=== PATIENT | female | born 1990 | race African-American/Black ===

== ENCOUNTER 2017-12-15 13:20 | Emergency (ER) | payer OTHER ==
[~2017-12-15] VITALS: Ht 167.6 cm; Wt 64.9 kg
[~2017-12-15 13:20] MED LIST: OFLO5DRO OS
[2017-12-15 13:43] VITALS: BP 116/67
--- NOTE | 2017-12-15 13:57 | PHYS DOC ---
Past Medical History Past Medical History: No Pertinent History Past Surgical History: No Surgical History Alcohol Use: Occasionally Drug Use: None Adult General Chief Complaint Chief Complaint: WOUND RECHECK/SUTURE REMOVAL HPI HPI Patient is a 27 year old female with no significant medical history who presents today for suture removal from the left upper extremity, patient states sutures have been in for 2 weeks. Review of Systems Review of Systems Constitutional: Denies fever or chills [] Musculoskeletal: Denies back pain or joint pain [] Integument: Visit for suture removal Neurologic: Denies headache, focal weakness or sensory changes [] All other systems were reviewed and found to be within normal limits, except as documented in this note. Allergies Allergies Allergies Coded Allergies Type Severity Reaction Last Updated Verified No Known Drug Allergies 05/01/15 No Physical Exam Physical Exam Constitutional: Well developed, well nourished, no acute distress, non-toxic appearance. [] Skin: Warm, dry, left inner biceps with a well approximated laceration site with 2 interrupted sutures. The area has scabbed over, no signs of infection. Back: No tenderness, no CVA tenderness. [] Extremities: No tenderness, no cyanosis, no clubbing, ROM intact, no edema. [] Neurologic: Alert and oriented X 3, normal motor function, normal sensory function, no focal deficits noted. [] Psychologic: Affect normal, judgement normal, mood normal. [] Current Patient Data Vital Signs Vital Signs Date Time Temp Pulse Resp B/P (MAP) Pulse Ox O2 Delivery O2 Flow Rate FiO2 12/15/17 13:43 98.0 78 16 116/67 (83) 98 Room Air 98.0 EKG EKG [] Radiology/Procedures Radiology/Procedures [] Course & Med Decision Making Course & Med Decision Making Pertinent Labs and Imaging studies reviewed. (See chart for details) This is a 27-year-old female patient presenting to the ED today for suture removal from the left upper extremity, 2 interrupted sutures were removed from patient's laceration site, laceration site is well approximated, no signs of infection, follow-up with PCP as needed. Dragon Disclaimer Dragon Disclaimer This electronic medical record was generated, in whole or in part, using a voice recognition dictation system. Departure Departure Impression: Primary Impression: Visit for suture removal Disposition: HOME, SELF-CARE Condition: STABLE Referrals: NO PCP (PCP) follow up with your doctor in 1 week as needed Patient Instructions: Suture Removal-Brief Additional Instructions: We removed stitches from your left upper extremity. Keep the area clean and dry. You can shower. Follow-up with your own doctor as needed. JOHNNA DONNELLY APRN Dec 15, 2017 13:57
== END 2017-12-15 14:11 | disposition home or self-care (01) ==
LOC: ER 13:20
DX: S46.222D Laceration of muscle, fascia and tendon of other parts of biceps, left arm, subsequent encounter (principal); X58.XXXD Exposure to other specified factors, subsequent encounter
CPT/HCPCS: 99281

== ENCOUNTER 2018-06-03 15:31 | Emergency (ER) | payer OTHER ==
[~2018-06-03] VITALS: Ht 167.6 cm; Wt 68.5 kg
[2018-06-03 15:46] VITALS: BP 112/71
[2018-06-03] MEDS ORDERED: CETIRIZINE HCL 10 MG TABLET. PO STA (16:02)
[2018-06-03] MEDS ORDERED: DIPHTH,PERTUSS(ACELL),TET TOX 0.5 ML DISP.SYRIN. VAX IM ONE (16:15)
[2018-06-03] MEDS ORDERED: predniSONE 10 MG TABLET PO ONE (16:15)
[2018-06-03] MEDS ORDERED: PRED50TA PO (16:27)
[2018-06-03] MEDS ORDERED: CETI10TA22 PO (16:27)
[2018-06-03] MEDS ORDERED: DOXY100T PO (16:27)
--- NOTE | 2018-06-03 16:31 | PHYS DOC ---
Past Medical History Past Medical History: No Pertinent History Past Surgical History: No Surgical History Alcohol Use: Occasionally Drug Use: None Adult General Chief Complaint Chief Complaint: INSECT BITE HPI HPI Patient is a 28 year old female who presents to the ED today complaining of insect bite to the right forearm. Patient states she noted the bite area yesterday. She states she has been using [id number] remedies including mariaelena oil with no relief. Denies any fever. Denies any nausea vomiting Review of Systems Review of Systems Constitutional: Denies fever or chills [] Musculoskeletal: Denies back pain or joint pain [] Integument: Reports insect bite to the right forearm Neurologic: Denies headache, focal weakness or sensory changes [] All other systems were reviewed and found to be within normal limits, except as documented in this note. Current Medications Current Medications Current Medications Medications (Trade) Dose Ordered Sig/Benton Start Time Stop Time Status Last Admin Dose Admin Cetirizine HCl (ZyrTEC) 10 mg 1X STAT 06/03/18 16:02 06/03/18 16:07 DC 06/03/18 16:16 10 MG Diphtheria/ Tetanus/Acell Pertussis (Boostrix) 0.5 ml ONCE ONCE 06/03/18 16:15 06/03/18 16:16 DC 06/03/18 16:17 0.5 ML Prednisone (Prednisone) 50 mg 1X ONCE 06/03/18 16:15 06/03/18 16:16 DC 06/03/18 16:15 50 MG Allergies Allergies Allergies Coded Allergies Type Severity Reaction Last Updated Verified No Known Drug Allergies 05/01/15 No Physical Exam Physical Exam Constitutional: Well developed, well nourished, no acute distress, non-toxic appearance. [] Skin: Right lateral forearm with an area of erythema approximately 10 x 8 cm. The area is warm tender to touch, no fluctuance. There is no bull's-eye to this area. There is multiple bite areas next to this on the right wrist as well as right lateral neck. Back: No tenderness, no CVA tenderness. [] Extremities: No tenderness, no cyanosis, no clubbing, ROM intact, no edema. [] Neurologic: Alert and oriented X 3, normal motor function, normal sensory function, no focal deficits noted. [] Psychologic: Affect normal, judgement normal, mood normal. [] Current Patient Data Vital Signs Vital Signs Date Time Temp Pulse Resp B/P (MAP) Pulse Ox O2 Delivery O2 Flow Rate FiO2 06/03/18 15:46 98.0 78 16 112/71 (85) 99 Room Air 98.0 EKG EKG [] Radiology/Procedures Radiology/Procedures [] Course & Med Decision Making Course & Med Decision Making Pertinent Labs and Imaging studies reviewed. (See chart for details) This is a 28-year-old female patient presented to the ED with an insect bite to the right forearm upon exams she has a large bite site on the right forearm with circular in shape worrisome for tick bite. Patient was given tetanus vaccine in the ED. Discharged on doxycycline, prednisone, and Zyrtec. Follow-up with PCP next week. Dragon Disclaimer Dragon Disclaimer This electronic medical record was generated, in whole or in part, using a voice recognition dictation system. Departure Departure Impression: Primary Impression: Insect bite Disposition: HOME, SELF-CARE Condition: STABLE Referrals: NO PCP (PCP) follow up with your doctor next week Patient Instructions: Insect Bite, [id number] Additional Instructions: You were evaluated in the emergency room for an insect bite to the right forearm. Take the prescribed medications as ordered. Follow-up with your doctor in the course of one week, come back to the ED at any point symptoms worsen. Scripts Doxycycline Hyclate (DOXYCYCLINE HYCLATE) 100 Mg Tablet 1 TAB PO BID, #28 TAB Prov: JOHNNA DONNELLY APRN 06/03/18 Cetirizine Hcl (ZYRTEC) 10 Mg Tablet 1 TAB PO DAILY, #30 TAB 0 Refills Prov: JOHNNA DONNELLY APRN 06/03/18 Prednisone (PREDNISONE) 50 Mg Tablet 1 TAB PO DAILY, #5 TAB Prov: JOHNNA DONNELLY APRN 06/03/18 Problem Qualifiers Primary Impression: Insect bite Encounter type: initial encounter Site of insect bite: forearm Laterality: right Qualified Codes: S50.861A - Insect bite (nonvenomous) of right forearm , initial encounter; W57.XXXA - Bitten or stung by nonvenomous insect and other nonvenomous arthropods, initial encounter JOHNNA DONNELLY APRN Jun 03, 2018 16:31
== END 2018-06-03 16:43 | disposition home or self-care (01) ==
LOC: ER 15:31
DX: S50.861A Insect bite (nonvenomous) of right forearm, initial encounter (principal); W57.XXXA Bitten or stung by nonvenomous insect and other nonvenomous arthropods, initial encounter; Y93.89 Activity, other specified; Y92.89 Other specified places as the place of occurrence of the external cause; Y99.8 Other external cause status
CPT/HCPCS: 90471; 90715; 99283; J7512

== ENCOUNTER 2019-11-11 09:10 | Emergency (ER) | payer MEDICAID, OTHER ==
[~2019-11-11] VITALS: Ht 167.6 cm; Wt 73.0 kg
[~2019-11-11 09:10] MED LIST changes: +CETI10TA74 PO; +DOXY100T PO; +PRED50TA PO
[2019-11-11 10:00] VITALS: BP 140/68
[2019-11-11] MEDS ORDERED: ACETAMINOPHEN 500 MG TABLET PO ONE (10:15)
[2019-11-11 10:30] LABS: BILIRUBIN,URINE NEGATIVE (NEG); CLARITY,URINE CLEAR; COLOR,URINE YELLOW; NITRITE,URINE NEGATIVE (NEG); PH,URINE 6.5 (<5.0-8.0); PROTEIN,URINE NEGATIVE (NEG-TRACE)
[2019-11-11 10:37] LABS: BASO # 0.1 x10^3/uL (0.0-0.2); BASO % 1 % (0-3); EOS # 0.2 x10^3/uL (0.0-0.7); EOS % 2 % (0-3); HEMATOCRIT 39.4 % (36.0-47.0); LYMPH # 1.9 x10^3/uL (1.0-4.8); LYMPH % 21 % (24-48); MEAN CORPUSCULAR HEMOGLOBIN 34 pg (25-35); MEAN CORPUSCULAR HGB CONC 36 g/dL (31-37); MEAN CORPUSCULAR VOLUME 97 fL (79-100); MONO # 0.7 x10^3/uL (0.0-1.1); MONO % 8 % (0-9); NEUT # 6.2 x10^3/uL (1.8-7.7); NEUT % 68 % (31-73); PLATELET COUNT 286 x10^3/uL (140-400); RED BLOOD COUNT 4.08 x10^6/uL (3.50-5.40); RED CELL DISTRIBUTION WIDTH 12.7 % (11.5-14.5); WHITE BLOOD COUNT 9.1 x10^3/uL (4.0-11.0)
[2019-11-11 10:44] LABS: AMORPHOUS SEDIMENT,UR PRESENT /HPF; BACTERIA,URINE FEW /HPF (0-FEW); RBC,URINE OCC /HPF (0-2); SQUAMOUS EPITHELIAL CELL,UR MANY /LPF
[2019-11-11 10:46] LABS: CREATININE 0.8 mg/dL (0.6-1.0); GFR 102.6; POTASSIUM 3.5 mmol/L (3.5-5.1)
--- NOTE | 2019-11-11 12:04 | RAD ---
Exam performed: OB sonogram less than 14 weeks HISTORY: Abdominal cramping. Patient unsure of LMP DATE OF SERVICE: 11/11/2019. COMPARISON: None available TECHNIQUE: Transabdominal and transvaginal. FINDINGS: The uterus is somewhat enlarged and measures 8.9 x 6.5 x 4.9 cm. It contains a single intrauterine gestational sac containing a live pole and yolk sac. The CRL measures 0.38 cm corresponding to 6 weeks and 0 days. Heart rate measures 100 bpm. Both ovaries are normal. The right ovary measures 3.4 x 1.9 x 1.7 cm the left ovary measures 4.0 x 2.6 x 1.7 cm. No free fluid. IMPRESSION: Single intrauterine gestational sac containing a live pole of maturity 6 weeks and 0 days with a INDU of 07/06/2020 Electronically signed by: Latanya Rosales MD (11/11/2019 12:01 PM) [id number]
[2019-11-11] MEDS ORDERED: ACET325C6 PO (12:14)
[2019-11-11] MEDS ORDERED: METO10TA81 PO (12:14)
--- NOTE | 2019-11-11 12:14 | PHYS DOC ---
Past Medical History Past Medical History: No Pertinent History Past Surgical History: No Surgical History Smoking Status: Current Every Day Smoker Alcohol Use: Occasionally Drug Use: None General Adult EDM: Chief Complaint: ABDOMINAL PAIN HPI: HPI: Patient is a 29-year-old female who presents with chief complaint of intermittent abdominal cramping over the past month. Patient is a she sta esther that her last menstrual period was in July some time. She said she has a Nexplanon device removed. She is unsure whether she is or not. She states she took a test 1 month ago that was negative. Denies dysuria or hematuria. Denies vaginal bleeding or discharge. Denies vomiting. States nothing seems to exacerbate or alleviate her symptoms. Denies any changes to her stool caliber or consistency. Denies syncope. Denies any previous abdominal surgical history. No other complaints. Review of Systems: Review of Systems: Constitutional: Denies fever or chills. [] Eyes: Denies change in visual acuity. [] HENT: Denies nasal congestion or sore throat. [] Respiratory: Denies cough or shortness of breath. [] Cardiovascular: Denies chest pain or edema. [] GI: Positive for abdominal pain : Denies dysuria. [] Musculoskeletal: Denies back pain or joint pain. [] Integument: Denies rash. [] Neurologic: Denies headache, focal weakness or sensory changes. [] Endocrine: Denies polyuria or polydipsia. [] Lymphatic: Denies swollen glands. [] Psychiatric: Denies depression or anxiety. [] Heart Score: Risk Factors: Risk Factors: DM, Current or recent (<one month) smoker, HTN, HLP, family history of CAD, obesity. Risk Scores: Score 0 - 3: 2.5% MACE over next 6 weeks - Discharge Home Score 4 - 6: 20.3% MACE over next 6 weeks - Admit for Clinical Observation Score 7 - 10: 72.7% MACE over next 6 weeks - Early Invasive Strategies Current Medications: Current Medications Medications (Trade) Dose Ordered Sig/Benton Start Time Stop Time Status Last Admin Dose Admin Acetaminophen (Tylenol) 1,000 mg 1X ONCE 11/11/19 10:15 11/11/19 10:26 DC 11/11/19 11:11 1,000 MG Allergies: Allergies: Allergies Coded Allergies Type Severity Reaction Last Updated Verified No Known Drug Allergies 05/01/15 No Physical Exam: PE: Constitutional: Well developed, well nourished, no acute distress, non-toxic appearance. [] HENT: Normocephalic, atraumatic, bilateral external ears normal, oropharynx moist, no oral exudates, nose normal. [] Eyes: PERRLA, EOMI, conjunctiva normal, no discharge. [] Neck: Normal range of motion, no tenderness, supple, no stridor. [] Cardiovascular:Heart rate regular rhythm, no murmur [] Lungs & Thorax: Bilateral breath sounds clear to auscultation [] Abdomen: Soft, nontender, nonacute abdomen. No involuntary guarding or rigidity noted. No acute peritonitis. Skin: Warm, dry, no erythema, no rash. [] Back: No tenderness, no CVA tenderness. [] Extremities: No tenderness, no cyanosis, no clubbing, ROM intact, no edema. [] Neurologic: Alert and oriented X 3, normal motor function, normal sensory function, no focal deficits noted. [] Psychologic: Affect normal, judgement normal, mood normal. [] Current Patient Data: Labs: Laboratory Tests Test 11/11/19 09:13 11/11/19 10:10 11/11/19 10:30 Urine Collection Type Unknown Urine Color Yellow Urine Clarity Clear Urine pH 6.5 (<5.0-8.0) Urine Specific [place] 1.020 (1.000-1.030) Urine Protein Negative mg/dL (NEG-TRACE) Urine Glucose (UA) Negative mg/dL (NEG) Urine Ketones (Stick) Negative mg/dL (NEG) Urine Blood Negative (NEG) Urine Nitrite Negative (NEG) Urine Bilirubin Negative (NEG) Urine Urobilinogen Dipstick 1.0 mg/dL (0.2 mg/dL) Urine Leukocyte Esterase Negative (NEG) Urine RBC Occ /HPF (0-2) Urine WBC 1-4 /HPF (0-4) Urine Squamous Epithelial Cells Many /LPF Urine Amorphous Sediment Present /HPF Urine Bacteria Few /HPF (0-FEW) Urine Mucus Marked /LPF POC Urine HCG, Qualitative Hcg positive (Negative) White Blood Count 9.1 x10^3/uL (4.0-11.0) Red Blood Count 4.08 x10^6/uL (3.50-5.40) Hemoglobin 14.0 g/dL (12.0-15.5) Hematocrit 39.4 % (36.0-47.0) Mean Corpuscular Volume 97 fL (79-100) Mean Corpuscular Hemoglobin 34 pg (25-35) Mean Corpuscular Hemoglobin Concent 36 g/dL (31-37) Red Cell Distribution Width 12.7 % (11.5-14.5) Platelet Count 286 x10^3/uL (140-400) Neutrophils (%) (Auto) 68 % (31-73) Lymphocytes (%) (Auto) 21 % (24-48) L Monocytes (%) (Auto) 8 % (0-9) Eosinophils (%) (Auto) 2 % (0-3) Basophils (%) (Auto) 1 % (0-3) Neutrophils # (Auto) 6.2 x10^3/uL (1.8-7.7) Lymphocytes # (Auto) 1.9 x10^3/uL (1.0-4.8) Monocytes # (Auto) 0.7 x10^3/uL (0.0-1.1) Eosinophils # (Auto) 0.2 x10^3/uL (0.0-0.7) Basophils # (Auto) 0.1 x10^3/uL (0.0-0.2) Maternal Serum HCG Beta Subunit 29904 mIU/mL (0-5) H Sodium Level 134 mmol/L (136-145) L Potassium Level 3.5 mmol/L (3.5-5.1) Chloride Level 102 mmol/L (98-107) Carbon Dioxide Level 22 mmol/L (21-32) Anion Gap 10 (6-14) Blood Urea Nitrogen 6 mg/dL (7-20) L Creatinine 0.8 mg/dL (0.6-1.0) Estimated GFR (Cockcroft-Gault) 102.6 Glucose Level 109 mg/dL (70-99) H Calcium Level 9.0 mg/dL (8.5-10.1) Laboratory Tests 11/11/19 10:30 Laboratory Tests 11/11/19 10:30 Vital Signs: Vital Signs Date Time Temp Pulse Resp B/P (MAP) Pulse Ox O2 Delivery O2 Flow Rate FiO2 11/11/19 10:00 98.7 86 16 140/68 (92) 98 Room Air 98.7 EKG: EKG: [] Radiology/Procedures: Radiology/Procedures: [facility] [address] [place] [address] IMAGING REPORT Signed PATIENT: COURTNEY BAKER ACCOUNT: [id number] : 1990 LOCATION: ER AGE: 29 SEX: F EXAM STATUS: REG ER ORD. PHYSICIAN: ELMO NARAYANAN DO REASON: abdominal cramping. + preg PROCEDURE: OB TRANSVAG Exam performed: OB sonogram less than 14 weeks HISTORY: Abdominal cramping. Patient unsure of LMP DATE OF SERVICE: 11/11/2019. COMPARISON: None available TECHNIQUE: Transabdominal and transvaginal. FINDINGS: The uterus is somewhat enlarged and measures 8.9 x 6.5 x 4.9 cm. It contains a single intrauterine gestational sac containing a live pole and yolk sac. The CRL measures 0.38 cm corresponding to 6 weeks and 0 days. Heart rate measures 100 bpm. Both ovaries are normal. The right ovary measures 3.4 x 1.9 x 1.7 cm the left ovary measures 4.0 x 2.6 x 1.7 cm. No free fluid. IMPRESSION: Single intrauterine gestational sac containing a live pole of maturity 6 weeks and 0 days with a INDU of 07/06/2020 Electronically signed by: Latanya Rosales MD (11/11/2019 12:01 PM) [id number] DICTATED and SIGNED BY: LATANYA ROSALES MD DATE: 11/11/19 1201 [] Course & Med Decision Making: Course & Med Decision Making Pertinent Labs and Imaging studies reviewed. (See chart for details) [] Patient is a 29-year-old female presents with chief complaint of intermittent abdominal cramping over the past month. Urine did result is positive. hCG level elevated at approximate 26,000. Ultrasound imaging was performed and did reveal an intrauterine approximate age of 6 weeks gestation. Maner of labs unremarkable. Pelvic exam will be deferred if she de nies any vaginal bleeding or discharge. Type and screen will also be deferred for the same reasons. She was treated with oral Tylenol. She was updated on the results of labs and imaging. She was instructed to follow-up with an TRAINING SYSTEMS OFFICER. Return precautions discussed and understood. Stable for discharge home. Nenita Disclaimer: Nenita Disclaimer: This electronic medical record was generated, in whole or in part, using a voice recognition dictation system. Departure Departure Impression: Primary Impression: Abdominal pain affecting Disposition: HOME, SELF-CARE Condition: STABLE Referrals: NO PCP (PCP) LJ BENNETT MD Patient Instructions: Abdominal Pain During Additional Instructions: Please follow-up your primary care physician in the next 2 to 3 days. Scripts Metoclopramide Hcl (REGLAN) 10 Mg Tablet 1 TAB PO TID PRN PRN for NAUSEA for 5 Days, #15 TAB 0 Refills before food and bedtime Prov: ELMO NARAYANAN DO 11/11/19 Acetaminophen (Tylenol) 325 Mg Capsule 1000 MG PO TID PRN PRN for PAIN for 7 Days, #21 CAP Prov: ELMO NARAYANAN DO 11/11/19 Justicifation of Admission Dx: Justifications for Admission: Justification of Admission Dx: N/A ELMO NARAYANAN DO Nov 11, 2019 12:14
== END 2019-11-11 12:30 | disposition home or self-care (01) ==
LOC: ER 09:10
DX: O26.891 Other specified pregnancy related conditions, first trimester (principal); R10.9 Unspecified abdominal pain; F17.200 Nicotine dependence, unspecified, uncomplicated; Z3A.01 Less than 8 weeks gestation of pregnancy
CPT/HCPCS: 36415; 76817; 80048; 81001; 81025; 84702; 85025; 99284

== ENCOUNTER 2020-01-20 20:59 | Emergency (ER) | payer MEDICAID ==
[~2020-01-20 20:59] MED LIST changes: +ACET325C6 PO; +METO10TA81 PO
--- NOTE | 2020-01-20 21:38 | PHYS DOC ---
Past Medical History Past Medical History: No Pertinent History (JOHNNA DONNELLY APRN) Past Surgical History: No Surgical History (JOHNNA DONNELLY APRN) Smoking Status: Current Every Day Smoker Alcohol Use: Occasionally Drug Use: None (JOHNNA DONNELLY APRN) General Adult EDM: Chief Complaint: ABDOMINAL PAIN IN HPI: HPI: Patient is a 30 year old female 5 para 4 presenting to the ED today co mplaining of mild intermittent abdominal cramping that began a couple minutes ago. Patient denies any bleeding. Denies any back pain. Denies any nausea vomiting. Denies anything specifically exacerbating or relieving her cramping. She states she has not been seen by her WO[employer] SAWYER for this . She states her last menstrual cycle was sometimes in September she cannot remember the exact date. (JOHNNA DONNELLY APRN) Review of Systems: Review of Systems: Constitutional: Denies fever or chills. [] Eyes: Denies change in visual acuity. [] HENT: Denies nasal congestion or sore throat. [] Respiratory: Denies cough or shortness of breath. [] Cardiovascular: Denies chest pain or edema. [] GI: Reports abdominal cramping in , denies nausea, vomiting, bloody stools or diarrhea. [] : Denies dysuria. [] Musculoskeletal: Denies back pain or joint pain. [] Integument: Denies rash. [] Neurologic: Denies headache, focal weakness or sensory changes. [] Psychiatric: Denies depression or anxiety. [] (JOHNNA DONNELLY APRN) Heart Score: Risk Factors: Risk Factors: DM, Current or recent (<one month) smoker, HTN, HLP, family history of CAD, obesity. Risk Scores: Score 0 - 3: 2.5% MACE over next 6 weeks - Discharge Home Score 4 - 6: 20.3% MACE over next 6 weeks - Admit for Clinical Observation Score 7 - 10: 72.7% MACE over next 6 weeks - Early Invasive Strategies (JOHNNA DONNELLY APRN) Allergies: Allergies: Allergies Coded Allergies Type Severity Reaction Last Updated Verified No Known Drug Allergies 05/01/15 No (JOHNNA DONNELLY APRN) Physical Exam: PE: Constitutional: Well developed, well nourished, no acute distress, non-toxic appearance. [] HENT: Normocephalic, atraumatic, bilateral external ears normal, oropharynx moist, no oral exudates, nose normal. [] Eyes: PERRLA, EOMI, conjunctiva normal, no discharge. [] Neck: Normal range of motion, no tenderness, supple, no stridor. [] Cardiovascular:Heart rate regular rhythm, no murmur [] Lungs & Thorax: Bilateral breath sounds clear to auscultation [] Abdomen: Gravid abdomen. Bowel sounds normal, soft, no tenderness, no masses, no pulsatile masses. [] Skin: Warm, dry, no erythema, no rash. [] Back: No tenderness, no CVA tenderness. [] Extremities: No tenderness, no cyanosis, no clubbing, ROM intact, no edema. [] Neurologic: Alert and oriented X 3, normal motor function, normal sensory function, no focal deficits noted. [] Psychologic: Affect normal, judgement normal, mood normal. [] (JOHNNA DONNELLY APRN) Current Patient Data: Labs: Laboratory Tests Test 01/20/20 21:30 POC Urine HCG, Qualitative Hcg positive (Negative) (JOHNNA DONNELLY APRN) EKG: EKG: [] (JOHNNA DONNELLY APRN) Radiology/Procedures: Radiology/Procedures: [] (JOHNNA DONNELLY APRN) Course & Med Decision Making: Course & Med Decision Making Pertinent Labs and Imaging studies reviewed. (See chart for details) This is a 30-year-old female patient 5 para 4 currently presenting to the ED today complaining of abdominal cramping that began a couple minutes prior to coming to the ED. Patient is not sure of the exact date of her menstrual cycle but states it was in September 2019. Urine analysis negative for any acute findings. Ordered ultrasound as well as labs on this patient. My understanding she is signed out AMA per nursing staff. The last time I saw this patient she was alert oriented x4 and able to make her own decisions. (JOHNNA DONNELLY APRN) Dragon Disclaimer: Dragon Disclaimer: This electronic medical record was generated, in whole or in part, using a voice recognition dictation system. (JOHNNA DONNELLY APRN) Departure Departure Impression: Primary Impression: Abdominal pain affecting Disposition: 07 AMA/ELOPED/LWBS Condition: STABLE Referrals: NO PCP (PCP) Attending Signature Attending Signature I have reviewed the PA/COUNTY COURT JUDGE's note and plan of care. I was available for consultation as needed during the patient's visit in the emergency department. I agree with the clinical impression, plan, and disposition. (LJ ZAMAN DO) JOHNNA DONNELLY APRN Jan 20, 2020 21:38 LJ ZAMAN DO Jan 21, 2020 00:11
[2020-01-20 21:42] LABS: BILIRUBIN,URINE NEGATIVE (NEG); CLARITY,URINE CLEAR; COLOR,URINE YELLOW; NITRITE,URINE NEGATIVE (NEG); PH,URINE 7.5 (<5.0-8.0); PROTEIN,URINE NEGATIVE (NEG-TRACE)
[2020-01-20 21:47] LABS: BARBITURATES NEG (NEG); BENZODIAZEPINES NEG (NEG); CANNABINOIDS NEG (NEG); COCAINE NEG (NEG); METHADONE NEG (NEG); OPIATES NEG (NEG); PHENCYCLIDINE NEG (NEG)
[2020-01-20 21:48] LABS: AMPHETAMINE/METHAMPHETAMINE NEG (NEG)
[2020-01-20 21:50] LABS: AMORPHOUS SEDIMENT,UR PRESENT /HPF; BACTERIA,URINE 0 /HPF (0-FEW); RBC,URINE OCC /HPF (0-2); WBC,URINE OCC /HPF (0-4)
[2020-01-20] MEDS ORDERED: ACETAMINOPHEN 500 MG TABLET PO ONE (22:00)
== END 2020-01-20 22:40 | disposition left against medical advice (07) ==
LOC: ER 20:59
DX: O26.891 Other specified pregnancy related conditions, first trimester (principal); R10.84 Generalized abdominal pain; F17.200 Nicotine dependence, unspecified, uncomplicated
CPT/HCPCS: 80307; 81001; 81025; 99283